=== PATIENT | male | born 1990 | race Hispanic/Latino ===

== ENCOUNTER 2020-03-30 10:37 | Emergency (ER) | payer SELFPAY ==
[2020-03-30] MEDS ORDERED: Acetaminophen 500 MG TAB ONE (11:14)
[2020-03-30] MEDS ORDERED: Ondansetron ODT 4 MG TAB ONE (11:14)
[2020-03-30] MEDS ORDERED: Morphine 4 MG/ML VIAL ONE (11:14)
[2020-03-30 12:06] LABS: #Basophils 0.1 thou/uL (0.0-0.2); #Eosinphils 0.1 thou/uL (0.0-0.7); #Lymphocytes 2.1 thou/uL (1.20-3.40); #Monocytes 0.6 thou/uL (0.11-0.59); %Basophils 0.5 % (0.0-1.0); %Eosinophils 0.7 % (0.0-10.0); %Lymphocytes 17.6 % (21.0-51.0); %Monocytes 5.1 % (0.0-10.0); %Neutrophils 76.1 % (42.0-75.0); Hemoglobin 14.5 g/dL (14.0-18.0); Mean Corpuscular HGB CONC 34.1 g/dL (32.0-36.0); Mean Corpuscular Hemoglobin 31.3 pg (27.0-31.0); Mean Corpuscular Volume 91.9 fL (78.0-98.0); Mean Platelet Volume 9.4 fL (7.4-10.4); Platelet Count 184 thou/uL (130-400); RBC Distribution Width 12.1 % (11.5-14.5); Red Blood Cell (RBC) Count 4.64 mill/uL (4.70-6.10); White Blood Cell (WBC) Count 11.8 thou/uL (4.8-10.8)
[2020-03-30 12:25] LABS: ALT (SGPT) 42 U/L (8-55); AST (SGOT) 26 U/L (5-34); Alkaline Phosphatase 59 U/L (40-110); Anion Gap 11 mmol/L (10-20); BUN (Urea Nitrogen) 10 mg/dL (8.9-20.6); Bilirubin, Total 0.6 mg/dL (0.2-1.2); Calc. Creatinine Clearance 0 mL/min (70-130); Calcium 8.4 mg/dL (7.8-10.44); Carbon Dioxide 25 mmol/L (22-29); Chloride 105 mmol/L (98-107); Estimated GFR-MDRD Greater than 90; Globulin 3.1 g/dL (2.4-3.5); Glucose 98 mg/dL (70-105); Lipase 9 U/L (8-78); Potassium 3.4 mmol/L (3.5-5.1); Protein, Total 7.1 g/dL (6.0-8.3); Sodium 138 mmol/L (136-145)
--- NOTE | 2020-03-30 12:34 | CT ---
CT ABDOMEN WITH CONTRAST CT PELVIS WITH CONTRAST: DATE: 03/30/2020 HISTORY: 29-year-old male with left lower quadrant abdominal pain COMPARISON: None TECHNIQUE: IV injection of iodinated contrast media: administered. Oral contrast media:Not administered FINDINGS: There is a 5 x 3 x 3 mm calculus at the distal most portion of left ureter, a few millimeters proxima l to the UVJ. There is mild left hydroureteronephrosis. There is delayed left nephrogram. There is minimal left perinephric edema. Normal right kidney, abdominal aorta, adrenals, pancreas, spleen, appendix, and urinary bladder. No colonic diverticulitis, small bowel dilation, ascites, or pneumoperitoneum. Diffusely low hepatic attenuation suggestive of fatty liver. No pleural effusion. IMPRESSION: 1) 5 x 3 x 3 mm calculus at left ureterovesical junction causing obstructive uropathy: Mild left hydr onephrosis and delayed left nephrogram. 2) hepatic steatosis
[2020-03-30] MEDS ORDERED: Ketorolac Tromethamine 30 MG/ML VIAL ONE (12:43)
--- NOTE | 2020-03-30 12:54 | ULT ---
Ultrasound scrotum with color and spectral Doppler imaging: HISTORY: Left testicular pain COMPARISON: None FINDINGS: Right testes:5.2 x 3.3 x 2.4 cm Left testes:5.0 x 3.4 x 2.2 cm Epididymal regions:Within normal limits. Hydrocele:Trace fluid bilaterally. Scrotal wall:Within normal limits. Vascular duplex demonstrates arterial inflow and venous outflow. No evidence for testicular torsion. No evidence for intratesticular or extratesticular mass. IMPRESSION: No evidence for intratesticular mass, testicular torsion, or other significant acute process.
[2020-03-30 13:32] LABS: Bacteria/HPF None Seen HPF (None Seen); Bilirubin Negative (Negative); Blood, Urine 2+ (Negative); Clarity Clear (Clear); Glucose, Urine (Dipstick) Normal (Negative); Ketone, Urine Negative (Negative); Leukocyte Negative Leu/uL (Negative); Nitrite Negative (Negative); Protein, Urine (Dipstick) Negative (Neg-Trace); Specific Gravity, Urine 1.033 (1.002-1.036); Squamous Epithelial 0-3 HPF (0-3); Urobilinogen Normal mg/dL (Less than 2); WBC/HPF 0-3 HPF (0-3)
[2020-03-30] MEDS ORDERED: Iopamidol-370 76% 500 ML 1 ML ONE (14:26)
== END 2020-03-30 14:25 | disposition home or self-care (01) ==
LOC: ERS 10:37
DX: N13.2 Hydronephrosis with renal and ureteral calculous obstruction (principal)
CPT/HCPCS: 36415; 74177; 76870; 80053; 81003; 81015; 83605; 83690; 85025; 93976; 96374; 96375; J1885; J2270; Q0162; Q9967